=== PATIENT | female | born 1940 | race Caucasian/White ===

== ENCOUNTER 2018-07-17 09:27 | Outpatient (CLI) | payer OTHER ==
--- NOTE | 2018-07-17 10:44 | RAD ---
CHEST 2 VIEWS: HISTORY: Dyspnea. COMPARISON: 04/17/18. FINDINGS: Cardiac silhouette and pulmonary vasculature are unremarkable. Lungs are hyperinflated. Mediastinum midline with aortic calcification. No confluent airspace consolidation, pneumothorax, or pleural fl uid. IMPRESSION: 1. Chronic obstructive pulmonary disease. 2. Atherosclerosis. POS: JUMANA[facility]
== END 2018-07-17 09:28 | disposition home or self-care (01) ==
LOC: RAD 09:27
PROVIDERS: ATTEND Internal Medicine
DX: R06.00 Dyspnea, unspecified (principal); J44.9 Chronic obstructive pulmonary disease, unspecified; I70.0 Atherosclerosis of aorta
CPT/HCPCS: 71046